=== PATIENT | male | born 1965 | race Two or more races ===

== ENCOUNTER 2017-01-05 02:03 | Emergency (ER) | payer SELFPAY ==
[2017-01-05 02:10] VITALS: BP 143/82; PULSE 82; TEMP 97.6; BMI 28.8
--- NOTE | 2017-01-05 02:57 | PDOC ---
History of Present Illness - General History Source: Patient Exam Limitations: No Limitations - History of Present Illness Initial Comments: 01/05/17 05:02 The patient is a 51-year-old male BIBMECCA with no significant past medical history, and presents to the emergency department with dizziness and vomiting. He states he began to feel lightheaded at 10:30pm, and felt the room spinning. He reports he laid down and had two episodes of non-bloody vomiting afterwards. He states he has had no previous similar episodes of this. He states he had chicken and peas at home tonight. The patient denies chest pain, shortness of breath, and headache. The patient denies fever, chills, abdominal pain, recent sickness, diarrhea, and constipation. The patient denies dysuria, frequency, urgency and hematuria. Allergies: NKDA Past Surgical History: Social History: No toxic habits reported <Peggy Romero - Last Filed: 01/05/17 05:02> <Shanique Zaidi - Last Filed: 01/07/17 09:59> - General Chief Complaint: Vomiting/Diarrhea Stated Complaint: VOMITING Time Seen by Provider: 01/05/17 02:42 Past History <Peggy Romero - Last Filed: 01/05/17 05:02> - Past Medical History Thyroid Disease: No - Immunization History Immunization Up to Date: No - Suicide/Smoking/Psychosocial Hx Smoking History: Never smoked Have you smoked in the past 12 months: Yes Number of Cigarettes Smoked Daily: 20 Information on smoking cessation initiated: No Hx Alcohol Use: No Drug/Substance Use Hx: No Substance Use Type: None <Shanique Zaidi - Last Filed: 01/07/17 09:59> - Past Medical History Allergies/Adverse Reactions: Allergies Allergy/AdvReac Type Severity Reaction Status Date / Time No Known Allergies Allergy Verified 01/05/17 02:10 Home Medications: Ambulatory Orders Meclizine HCl 25 mg PO QID #40 tablet 01/05/17 Review of Systems - Review of Systems Able to Perform ROS?: Yes Comments:: 01/05/17 05:02 GENERAL/CONSTITUTIONAL: No fever or chills. No weakness. HEAD, EYES, EARS, NOSE AND THROAT: No change in vision. No ear pain or discharge. No sore throat. CARDIOVASCULAR: No chest pain or shortness of breath. RESPIRATORY: No cough, wheezing, or hemoptysis. GASTROINTESTINAL: (+) Nausea, (+) vomiting. No diarrhea or constipation. GENITOURINARY: No dysuria, frequency, or change in urination. MUSCULOSKELETAL: No joint or muscle swelling or pain. No neck or back pain. SKIN: No rash NEUROLOGIC: (+) Dizziness. No headache, loss of consciousness, or change in strength/sensation. ENDOCRINE: No increased thirst. No abnormal weight change. HEMATOLOGIC/LYMPHATIC: No anemia, easy bleeding, or history of blood clots. ALLERGIC/IMMUNOLOGIC: No hives or skin allergy. <Peggy Romero - Last Filed: 01/05/17 05:02> *Physical Exam - Vital Signs Last Vital Signs Temp Pulse Resp BP Pulse Ox 97.6 F 82 18 143/82 98 01/05/17 02:05 01/05/17 02:05 01/05/17 02:05 01/05/17 02:05 01/05/17 02:05 - Physical Exam Comments: 01/05/17 05:02 GENERAL: Awake, alert, and fully oriented, in no acute distress HEAD: No signs of trauma EYES: (+) Nystagmus. PERRLA, EOMI, sclera anicteric, conjunctiva clear ENT: Auricles normal inspection, hearing grossly normal, nares patent, oropharynx clear without exudates. Moist mucosa NECK: Normal ROM, supple, no lymphadenopathy, JVD, or masses LUNGS: Breath sounds equal, clear to auscultation bilaterally. No wheezes, and no crackles HEART: Regular rate and rhythm, normal S1 and S2, no murmurs, rubs or gallops ABDOMEN: Soft, nontender, normoactive bowel sounds. No guarding, no rebound. No masses EXTREMITIES: Normal range of motion, no edema. No clubbing or cyanosis. No cords, erythema, or tenderness NEUROLOGICAL: Cranial nerves II through XII grossly intact. Finger to nose and Romberg normal. Negative dysdiadokokinesis. Normal speech. SKIN: Warm, Dry, normal turgor, no rashes or lesions noted. <Felicity Romeronda - Last Filed: 01/05/17 05:02> - Vital Signs Last Vital Signs Temp Pulse Resp BP Pulse Ox 97.6 F 82 18 143/82 98 01/05/17 02:05 01/05/17 02:05 01/05/17 02:05 01/05/17 02:05 01/05/17 02:05 <Shanique Zaidi - Last Filed: 01/07/17 09:59> ED Treatment Course - LABORATORY CBC & Chemistry Diagram: 01/05/17 03:03 01/05/17 03:03 - ADDITIONAL ORDERS Additional order review: Laboratory Results 01/05/17 01/05/17 03:03 03:03 PT with INR 12.60 H INR 1.14 Sodium 140 Potassium 3.7 Chloride 105 Carbon Dioxide 25 Anion Gap 10 BUN 10 Creatinine 0.9 Creat Clearance w eGFR > 60 Random Glucose 112 H Calcium 8.8 Total Bilirubin 0.4 AST 24 ALT 24 Alkaline Phosphatase 80 Creatine Kinase 156 Creatine Kinase Index 0.6 CK-MB (CK-2) < 1.000 Troponin I < 0.02 Total Protein 7.8 Albumin 3.7 01/05/17 03:03 RBC 4.98 MCV 89.9 MCHC 34.1 RDW 13.3 MPV 8.6 Neutrophils % 76.2 Lymphocytes % 18.6 Monocytes % 4.3 Eosinophils % 0.4 Basophils % 0.5 - Medications Given in the ED: ED Medications Discontinued Medications Generic Name Dose Route Start Last Admin Trade Name Freq PRN Reason Stop Dose Admin Meclizine HCl 50 mg 01/05/17 02:58 01/05/17 03:36 Antivert - PO 01/05/17 02:59 50 mg ONCE ONE Administration Ondansetron HCl 4 mg 01/05/17 02:58 01/05/17 03:36 Zofran Injection IVPB 01/05/17 02:59 4 mg ONCE ONE Administration Sodium Chloride 1,000 ml 01/05/17 02:58 01/05/17 03:36 Normal Saline - IV 01/05/17 02:59 1,000 ml ONCE ONE Administration <Peggy Romero - Last Filed: 01/05/17 05:02> - LABORATORY CBC & Chemistry Diagram: 01/05/17 03:03 01/05/17 03:03 <Shanique Zaidi - Last Filed: 01/07/17 09:59> Medical Decision Making - Medical Decision Making 01/05/17 04:56 Pt comes with dizziness that started suddenly today after dinner. He vomited multiple times. Dizziness is positional. 01/07/17 09:58 Pt's neuro exam is normal. Finger to nose normal; romberg normal. CT head and cerebellum normal. Pt has no sign of cerebellar CVA; he is feeling better in the ER d/c home with meclizine. <Shanique Zaidi - Last Filed: 01/07/17 09:59> *DC/Admit/Observation/Transfer - Attestations Scribe Attestion: 01/05/17 05:03 Documentation prepared by Peggy Romero, acting as spanish medical interpreter for Shanique Zaidi MD. <Peggy Romero - Last Filed: 01/05/17 05:02> - Discharge Dispostion Admit: No <Shanique Zaidi - Last Filed: 01/07/17 09:59> Diagnosis at time of Disposition: BPV (benign positional vertigo) - Discharge Dispostion Disposition: HOME Condition at time of disposition: Stable - Prescriptions Prescriptions: Meclizine HCl 25 mg PO QID #40 tablet - Referrals Referrals: STAFF,NOT ON [Primary Care Provider] - Sebastián Pimentel MD [Staff Physician] - - Patient Instructions Printed Discharge Instructions: Benign Paroxysmal Positional Vertigo
[2017-01-05] MEDS ORDERED: ONDANSETRON 4 MG/2 ML VIAL IVPB ONE (02:58)
[2017-01-05] MEDS ORDERED: SODIUM CHLORIDE 0.9% 1000 ML INFUS.BAG IV ONE (02:58)
[2017-01-05] MEDS ORDERED: MECLIZINE HCL 25 MG TABLET (FP) PO ONE (02:58)
[2017-01-05] MEDS ORDERED: ONDANSETRON 4 MG/2 ML VIAL ONE (03:01)
[2017-01-05] MEDS ORDERED: MECLIZINE HCL 25 MG TABLET (FP) ONE (03:01)
[2017-01-05 03:12] LABS: BASOPHIL 0.5 % (0-2.0); EOSINOPHIL 0.4 % (0-4.5); MCH 30.7 pg (25.7-33.7); MCHC 34.1 g/dl (32.0-35.9); MEAN CELL VOLUME 89.9 fl (80-96); MEAN PLT VOLUME 8.6 fl (7.5-11.1); NEUTROPHILS 76.2 % (42.8-82.8); PLATELET COUNT 225 K/MM3 (134-434); RDW 13.3 % (11.9-15.9); WHITE BLOOD COUNT 9.3 K/mm3 (4.0-10.0)
[2017-01-05 03:25] LABS: INR 1.14 (0.82-1.09); PROTHROMBIN TIME (PATIENT) 12.6 SEC (9.98-11.88)
[2017-01-05 03:45] LABS: ALBUMIN 3.7 g/dl (3.4-5.0); ANION GAP 10 (8-16); BILIRUBIN,TOTAL 0.4 mg/dL (0.2-1.0); CALCIUM 8.8 mg/dL (8.5-10.1); CO2 25 mmol/L (21-32); CREATININE 0.9 mg/dL (0.7-1.3); GLUCOSE,RANDOM 112 mg/dL (74-106); SGPT/ALT 24 U/L (12-78); TOT PROT 7.8 g/dl (6.4-8.2)
[2017-01-05 03:49] LABS: ALK PHOS 80 U/L (45-117); CPK 156 IU/L (39-308); SGOT/AST 24 U/L (15-37); TROPONIN I < 0.02 ng/ml (0.00-0.05)
[2017-01-05] MEDS ORDERED: METOCLOPRAMIDE HCL INJECTION 10 MG/2 ML VIAL IVPB ONE (04:56)
[2017-01-05] MEDS ORDERED: METOCLOPRAMIDE HCL INJECTION 10 MG/2 ML VIAL ONE ×2 (05:26→05:37)
--- NOTE | 2017-01-05 12:41 | EKG ---
Test Reason : Blood Pressure : / mmHG Vent. Rate : 069 BPM Atrial Rate : 069 BPM P-R Int : 188 ms QRS Dur : 100 ms QT Int : 392 ms P-R-T Axes : 048 002 035 degrees QTc Int : 420 ms NORMAL SINUS RHYTHM INCOMPLETE RIGHT BUNDLE BRANCH BLOCK BORDERLINE ECG NO PREVIOUS ECGS AVAILABLE Confirmed by NIKKI PADILLA MD ([id number]) on 01/05/2017 12:41:17 PM Referred By: Confirmed By:NIKKI PADILLA MD
== END 2017-01-05 05:49 | disposition home or self-care (01) ==
LOC: SUPCPDRO 02:03 → JER 02:03
PROC: 3E033GC Introduction of Other Therapeutic Substance into Peripheral Vein, Percutaneous Approach (ICD-10-PCS; principal; 2017-01-05)
PROC: 3E0337Z Introduction of Electrolytic and Water Balance Substance into Peripheral Vein, Percutaneous Approach (ICD-10-PCS; 2017-01-05)
DX: H81.10 Benign paroxysmal vertigo, unspecified ear (principal)
CPT/HCPCS: 36415; 70450-TC; 80053; 82553; 84484; 85025; 85610; 93005; 93010; 99281-25